=== PATIENT | male | born 1940 | race African-American/Black ===

== ENCOUNTER → 2016-12-16 10:11 | Outpatient (CLI) | payer MEDICARE, OTHER ==
[2016-03-04 09:34] VITALS: BMI 26.8
[~2016-12-16 10:11] MED LIST: ACETAMINOPHEN500 M1 PO; AMBIEN10 MG PO; ASPIRIN81 MG PO; CIALIS10 MG PO; COLACE100 MG PO; CYCLOBENZAPRINE10 MG PO; DYAZIDE 37.5/251 CAP PO; FLOMAX0.4 MG PO; GLUCOPHAGE850 MG PO; PERCOCET 10/3251 TA1 PO; PLAVIX75 MG PO; PRILOSEC20 MG PO; ZOCOR20 MG PO
[2016-12-16 11:18] LABS: ALBUMIN 3.8 g/dL (3.4-5.0); ANION GAP 14.1 mmol/L (8-16); BILIRUBIN - TOTAL 0.2 mg/dL (0.2-1.3); CALCIUM 9.3 mg/dL (8.5-10.1); CARBON DIOXIDE 27.9 mmol/L (21.0-32.0); CREATININE - SERUM 1.5 mg/dL (0.6-1.3); PROTEIN - SERUM 7.1 g/dL (6.4-8.2); URIC ACID 7.1 mg/dL (2.6-7.2)
[2016-12-16 11:25] LABS: HEMATOCRIT 43.3 % (42.0-54.0); HEMOGLOBIN 13.6 g/dL (13.5-17.5); MCH 25.7 pg (26.0-34.0); MCHC 31.4 g/dL (31.0-37.0); MCV 81.7 fL (80.0-100.0); MEAN PLATELET VOLUME 10.6 fL (7.4-10.4); RBC 5.3 10x6/uL (4.20-6.10); RDW 13.8 % (11.5-14.5); WBC 5.4 10x3/uL (4.8-10.8)
== END | disposition home or self-care (01) ==
LOC: D.LAB 10:11
PROVIDERS: Internal Medicine Cardiovascular Disease
DX: D64.9 Anemia, unspecified (principal); M10.9 Gout, unspecified; N28.9 Disorder of kidney and ureter, unspecified

== ENCOUNTER → 2018-05-23 09:01 | Outpatient (CLI) | payer MEDICARE, OTHER ==
[2016-03-04 09:34] VITALS: BMI 26.8
== END | disposition home or self-care (01) ==
LOC: D.US 09:01
DX: M79.605 Pain in left leg (principal); I73.9 Peripheral vascular disease, unspecified

== ENCOUNTER → 2018-08-04 09:47 | Outpatient (CLI) | payer MEDICARE, OTHER ==
[2016-03-04 09:34] VITALS: BMI 26.8
[~2018-08-04 09:47] MED LIST changes: +ACETAMINOPHEN PO; +EZFE 200200 MG PO; +GLIPIZIDE10 MG PO; +MAXZIDE 75/501 TAB; +NITROSTAT PO; +PROTONIX FOR OR40 MG PT; +TESSALON PERLE100 MG PO
== END | disposition home or self-care (01) ==
LOC: D.CT 09:47
DX: I73.9 Peripheral vascular disease, unspecified (principal); M79.605 Pain in left leg; M79.604 Pain in right leg

== ENCOUNTER 2018-09-01 05:05 | Day surgery (SDC) | payer MEDICARE, OTHER ==
[2018-08-31 11:35] LABS: HEMATOCRIT 40.4 % (42.0-54.0); HEMOGLOBIN 12.8 g/dL (13.5-17.5); MCH 25.5 pg (26.0-34.0); MCHC 31.7 g/dL (31.0-37.0); MCV 80.5 fL (80.0-100.0); RBC 5.02 10x6/uL (4.20-6.10); RDW 14.2 % (11.5-14.5); WBC 5.7 10x3/uL (4.8-10.8)
[2018-08-31 11:41] LABS: APTT 30.1 SECONDS (22.8-39.4); INR 0.87 (0.85-1.17); PROTIME 11.4 SECONDS (11.6-15.0)
[2018-08-31 11:45] LABS: APPEARANCE CLEAR (CLEAR); BILIRUBIN NEGATIVE (NEGATIVE); COLOR YELLOW (YELLOW); GLUCOSE NEGATIVE (NEGATIVE); KETONE NEGATIVE (NEGATIVE); NITRITE NEGATIVE (NEGATIVE); PROTEIN NEGATIVE (NEGATIVE); UROBILINOGEN NORMAL (NORMAL)
[2018-08-31 11:47] LABS: ALBUMIN 3.7 g/dL (3.4-5.0); ANION GAP 16.1 mmol/L (8-16); BILIRUBIN - TOTAL 0.17 mg/dL (0.2-1.3); CALCIUM 8.9 mg/dL (8.5-10.1); CARBON DIOXIDE 27.1 mmol/L (21.0-32.0); CREATININE - SERUM 1.3 mg/dL (0.6-1.3); POTASSIUM - SERUM 4.2 mmol/L (3.5-5.1); PROTEIN - SERUM 7.5 g/dL (6.4-8.2)
[~2018-09-01] VITALS: Ht 157.5 cm; Wt 90.9 kg
[2018-09-01] VITALS (22 sets, daily range): BP systolic 102–178; BP diastolic 51–89; Ht 157.5 cm; Wt 90.9 kg
--- NOTE | ~2018-09-01 | HP ---
PATIENT: LAILA DELVALLE MEDICAL RECORD: [id number] ACCOUNT: [id number] LOCATION:D.OPS : 41 ADMISSION DATE: 09/01/18 PCP: MATT ROMERO MD HISTORY AND PHYSICAL EXAMINATION LAILA Hopson (78yo, M) ID# [id number]. Date/Time08/24/2018 01:99RXHCP1941Service Dept.NPP_[facility] ClinicProviderMATT ROMERO MDInsuranceMed Primary: MEDICARE-AR (MEDICARE) Insurance # : [id number] Employer Name : RETIRED Med Secondary: WEB-TPA (MEDICARE SUPPLEMENT) Insurance # : [id number] Employer Name : RETIRED Prescription: CMX - Member is eligible. Chief Complaint Followup: Claudication s/p L art w int 08/12/15 s/p R art w int 03/03/16 2 month with CTA abd/aorta w runoff Patient's Care Team Referring Provider: LICO ZULETA MD: [address] [place] [id number], , Patient's Pharmacies [facility] (ERX): [address] [address], , [facility] (PRIMARY) (MAIL-ORDER, ERX): [address] [facility] [id number], , Vitals BP:132/76 sitting R arm 08/24/2018 01:06 pmHR:82/reg 08/24/2018 01:06 pmHt:5 ft 2 in 08/24/2018 01:02 pmWt:144 lbs 08/24/2018 01:04 pmBMI:26.3 08/24/2018 01:04 pmAllergies Reviewed Allergies PENICILLINSMedications Reviewed Medications acetylcysteine 600 mg capsule Take 1 capsule(s) by oral route as directed.02/27/16 Noel Mcleanurinol 100 mg tablet Take 1 tablet(s) every day by oral route.12/27/16 filledCaremarkbenzonatate 100 mg /26/17 filledCaremarkCialis 20 mg /25/18 filledCaremarkciprofloxacin 500 mg /27/17 filledCaremarkclindamycin HCl 300 mg vorzpqj96/19/17 filledCaremarkclopidogrel 75 mg tablet Take 1 tablet(s) every day by oral route.07/17/18 filledCaremarkcyclobenzaprine 10 mg ibvixl84/25/18 filledCaremarkEnteric Coated Aspirin 81 mg tablet,delayed release Take 1 tablet(s) every day by oral route.02/26/16 [facility] Wilsonfamotidine 40 mg inlsob84/01/17 filledCaremarkglipiZIDE 10 mg himnua99/27/18 filledCaremarkglipiZIDE 5 mg opgrzv88/06/18 filledCaremarkHYDROcodone 10 mg-acetaminophen 325 mg auxncr24/17/17 filledCaremarkmetFORMIN 850 mg /17/18 filledCaremarkNitrostat 0.4 mg sublingual dbvjry72/01/16 filledCaremarkOneTouch Ultra Blue Test Strip06/26/18 filledCaremarkoxyCODONE-acetam inophen 10 mg-325 mg /25/16 filledCaremarkpantoprazole 40 mg tablet,delayed bdlokcf77/20/18 filledCaremarkpolyethylene glycol 3350 17 gram/dose oral oowtcg81/17/17 filledCaremarkpredniSONE 10 mg tablets in a dose pack Take 1 package(s) by oral route as directed.12/27/16 filledCaremarksimvastatin 20 mg foulco00/27/18 filledCaremarkStool Znynkjku73/21/16 [facility] HISTORY AND PHYSICAL [id number] LAILA DELVALLE Wilsonsucralfate 1 gram /16/17 filledCaremarktamsulosin 0.4 mg szdrvto57/26/17 filledCaremarktriamterene 37.5 mg-hydrochlorothiazide 25 mg fkxiaw39/07/18 filledCaremarkzolpidem 10 mg qeemnk46/27/16 filledCaremarkProblems Reviewed Problems Gout - Onset: 01/05/2017 Intermittent palpitations Limb pain at rest due to atherosclerosis of [place] artery Claudication, Bilateral Pain at rest due to peripheral vascular disease Atherosclerosis of arteries of the extremities Intermittent claudication, Bilateral Family History Reviewed Family History Mother- Heart disease - deceasedFather- Malignant neoplastic diseaseSocial History Reviewed Social History Cardiology Family history of heart disease?: Y Smoking Status: Former smoker High Cholesterol: Y High blood pressure: Y Diabetes: Y Surgical History Reviewed Surgical History Other - left hip replacment Other - 11/2015 - colon biopsy Vascular Surgery - 08/12/2015 - arteriogram w intervention, DB Carotid Endarterectomy - 2011 - right Other - 2004 - cholecystectomy Past Medical History Reviewed Past Medical History Bladder Problems: Y Blurred Vision: Y Diabetes: Y - oral meds Dizzy Spells: Y Eye Problems: Y GERD: Y High Blood Pressure: Y Hyperlipidemia: Y Hypertension: Y Pain in legs when walking: Y Peripheral Vascular Disease (PVD): Y Documents for Discussion Discussed the following documents: UNKNOWN - 08/04/18 Notes - In-stent restenosis right lower e xtremity Severe left superficial femoral artery stenosis Screening None recorded. HPI Atherosclerosis lower extremities with claudication HISTORY AND PHYSICAL [id number] LAILA DELVALLE ROS Patient reports exercise intolerance (recurrent claudication of the lower extremities bilaterally) but reports no fever, no night sweats, no significant weight gain, and no significant weight loss; Beginning to develop rest pain left lower extremity. He reports palpitations but reports no chest pain, no arm pain on exertion, no shortness of breath when walking, no shortness of breath when lying down, and no known heart murmur. He reports muscle aches, muscle weakness, and arthralgias/joint pain but reports no back pain and no swelling in the extremities; symptoms resolved with allopurinol. He reports no dry eyes, no ir ritation, and no vision change. He reports no difficulty hearing and no ear pain. He reports no frequent nosebleeds and no nose/sinus problems. He reports no sore throat, no bleeding gums, no snoring, no dry mouth, no mouth ulcers, no oral abnormalities, a nd no teeth problems. He reports no cough, no wheezing, no shortness of breath, and no coughing up blood. He reports no abdominal pain, no vomiting, normal appetite, no diarrhea, not vomiting blood, no nausea, and no constipation. He reports no incontinen c e, no difficulty urinating, no hematuria, and no increased frequency. He reports no abnormal mole, no jaundice, and no rashes. He reports no loss of consciousness, no weakness, no numbness, no seizures, no dizziness, and no headaches. He reports no depres vickie, no sleep disturbances, feeling safe in relationship, and no alcohol abuse. He reports no fatigue. He reports no swollen glands and no bruising. He reports no runny nose, no sinus pressure, no itching, no hives, and no frequent sneezing. ROS as noted in the HPI Physical Exam Patient is a 78-year-old male. Constitutional: General Appearance well nourished and developed and healthy-appearing. Level of Distress NAD. Ambulation ambulation with cane. Cardiovascular: Apical Impulse not displaced or no thrill. Heart Auscultation normal s1 and s2; no murmurs, rubs, or gallops; and RRR. Arterial Pulses no abdominal aorta bruits, femoral bruits, or popliteal bruits; popliteal not palpable (bilaterally) and dorsalis pedis not palpable(bilaterally); and 2+ bilateral, carotid 2+ bilateral, and femoral 2+ bilateral. Edema no edema or varicosities. Lungs: Repiratory Effort no dyspnea. Percussion no hyperresonance or dullness or flatness. Auscultation no wheezing, rhonchi, or rales / crackles and breathing sounds normal, good air movement, and CTA except as noted. Abdomen: Bowl Sounds normal. Inspection and Palpation no tenderness, guarding, masses, or rebound tenderness and soft and non-distended. Liver non-tender and no hepatomegaly. Spleen non-tender and no splenomegaly. Hernia none palpable. Ears, Nose, Throat: Hearing grossly normal hearing. Nose no external nose lesion. Lips, Teeth, and Gums no mouth or lip ulcers. Oropharynx: moist mucous membranes. Musculoskeletal System: Gait And Stance normal gait and stance. Digits and Nails normal nails and no cyanosis. Joints, Bones, and Muscles normal strength and movement of all extremities. Neurologic: Cranial Nerves grossly intact. Reflexes DTRs 2+ bilaterally throughout. Sensation grossly intact. Lymph Nodes: Lymph Nodes no cervical LAD, supraclavicular LAD, axillary LAD, or inguinal LAD. HISTORY AND PHYSICAL [id number] LAILA DELVALLE Eyes: Lids and Conjunctivae no discharge or pallor and non-injected. Pupils PERRLA. Cornea grossly intact. EOM EOMI. Lens clear. Sclerae non-icteric. Neck: Neck no masses, enlarged lymph nodes, or carotid bruits and supple and trachea midline. Thyroid no enlargement or nodules and non-tender. Skin: Inspection and Palpation no rash, lesions, ulcers, jaundice, or abnormal nevi. Assessment / Plan Atherosclerosis with rest pain 1. Claudication I73.9: Peripheral vascular disease, unspecified I70.218: Atherosclerosis of [place] arteries of extremities with intermittent claudication, other extremity 2. Limb pain at rest due to atherosclerosis of [place] artery I70.221: Atherosclerosis of [place] arteries of extremities with rest pain, right leg 3. Pain at rest due to peripheral vascular disease I73.9: Peripheral vascular disease, unspecified 4. Atherosclerosis of arteries of the extremities I70.209: Unspecified atherosclerosis of [place] arteries of extremities, unspecified extremity 5. Intermittent claudication I73.9: Peripheral vascular disease, unspecified Discussion Notes CT angiogram of the lower extremities and demonstrates severe sten osis left superficial femoral artery He also has in-stent stenosis on the right Plan Keli back atherectomy left lower extremity I have discussed the patient's disease process with him in detail as well as the alternative methods of treatment. We discuss ed endovascular repair of his left superficial femoral artery as well as open procedure we discussed the expected benefits and risk which include bleeding, infection, stroke, and , and the imponderables. He understands all of the above and wishes to proceed with planned intervention MATT ROMERO MD at 1547 CC: [id number] DICTATION DATE: 08/24/18 1350 [employer] PL[employer] MANAGER: ELSY 08/28/18 0946 [facility] [address] [id number]
--- NOTE | ~2018-09-01 | OP ---
PATIENT NAME: LAILA DELVALLE MEDICAL RECORD: [id number] :42 LOCATION:DJamilaOPS ADMISSION DATE: SURGEON: MATT GALVAN MD DATE OF OPERATION: 09/01/2018 SURGEON: Matt Galvan MD ANESTHESIA: General, Dr. Vizcaino. OPERATION PERFORMED: 1. Percutaneous access and closure of right common femoral artery. 2. Retrograde right external iliac arteriogram. 3. Selective left common femoral arteriogram. 4. Selective left superficial femoral arteriogram. 5. Selective left popliteal arteriogram. 6. Selective posterior tibioperoneal artery trunk arteriogram. 7. Diamondback atherectomy of superficial femoral artery proximally. 8. Diamondback atherectomy of the mid adductor canal superficial femoral artery. 9. Diamondback atherectomy of the distal popliteal artery. 10. Angioplasty of the popliteal artery with a 5 x 200 balloon. 11. Angioplasty of the superficial femoral artery with a 5 x 150 balloon. 12. Stenting of the left superficial femoral artery at the adductor canal with a 6 x 150 post-dilated with a 5 mm balloon. 13. Angiogram of left common femoral artery with runoff to the knee. 14. Selective popliteal arteriogram with runoff to the foot. PREOPERATIVE DIAGNOSIS: Severe claudication of lower extremities bilaterally, left greater than the right. POSTOPERATIVE DIAGNOSIS: Severe stenosis of the left superficial femoral artery and popliteal artery. INDICATION FOR OPERATION: Life altering claudication. FINDINGS AT OPERATION: The fluoro time was 15 minutes 27 seconds. Contrast was 133 mL. ARTERIOGRAMS: 1. Retrograde right external iliac arteriogram demonstrates diffuse disease, but no flow-limiting stenoses and delineation of the bifurcation. 2. Selective left common femoral arteriogram demonstrates an open distal iliac, common femoral with good flow into the profunda. There is 60% stenosis of the left superficial femoral artery at its proximal one-third. 3. Selective left superficial femoral arteriogram demonstrates high-grade stenosis at the adductor canal over 120 mm. 4. Selective left popliteal arteriogram demonstrates greater than 70% stenosis of the popliteal artery at the femoral condyle as well as distally at the tibial plateau. 5. Selective posterior tibioperoneal artery trunk arteriogram demonstrates good 3-vessel runoff to the foot. 6. Diamondback atherectomy of superficial femoral artery demonstrates improved flow suboptimal. 7. Diamondback atherectomy of the mid superficial femoral artery demonstrates much improved flow, but suboptimal. Diamondback atherectomy of the popliteal OPERATIVE REPORT [id number] LAILA DELVALLE artery demonstrates much improved stenotic area, but suboptimal. 8. Angioplasty of the popliteal artery demonstrates good result with no residual stenosis. 9. Angioplasty of the superficial femoral artery in its mid portion demonstrates a dissection with recurrent stenosis. 10. Arteriogram of the proximal superficial femoral artery demonstrates much improved flow with the area with minimal residual stenosis. 11. Stenting of the left superficial femoral artery at the adductor canal with a 6 x 150 stent demonstrates no residual stenosis through the superficial femoral artery and popliteal artery. 12. Arteriogram of left common femoral artery with runoff demonstrates excellent flow, no residual stenosis to the popliteal artery. 13. Popliteal arteriogram demonstrates good 3-vessel runoff to the foot with a good pedal arch. DESCRIPTION OF PROCEDURE: After informed consent, adequate preoperative medication evaluation, the patient was brought to the operating room, placed on the table in supine position. After induction of general endotracheal anesthesia and application of appropriate monitoring devices, the abdomen, and both legs were prepped and draped in sterile field, utilizing Betadine scrub, alcohol, and Betadine solution. Betadine-impregnated drape was also used. Utilizing ultrasound guidance, the right common femoral artery was accessed with a mini stick technique. The 4-sheath was exchanged for a 5-sheath. The patient was given a calculated dose of heparin. A right retrograde external iliac arteriogram was performed and demonstrated no significant stenosis delineated the bifurcation. Utilizing a rim catheter and Glidewire, the left superficial femoral artery was accessed. An exchange was made for an Amplatz wire and a 6-Dominican long sheath placed to the common femoral artery and arteriogram demonstrated the above anatomy. The superficial femoral artery was cannulated with a Quick-Cross catheter and an arteriogram performed from the proximal 1/3 to the knee demonstrated severe stenosis at the adductor canal over 120 mm. The wire and catheter were then manipulated into the popliteal artery. Popliteal arteriogram demonstrated stenosis in 2 places of the popliteal artery. The wire and catheter were then manipulated in the posterior tibioperoneal artery trunk and arteriogram demonstrated reflux into the anterior tibial artery and peroneal and posterior tibial arteries. A ViperWire was placed in the peroneal artery on the left. Utilizing a Diamondback atherectomy technique, the proximal superficial femoral artery, mid superficial femoral artery, popliteal artery in 2 different places underwent Diamondback atherectomy. The device was removed and arteriogram revealed the residual stenotic areas. Utilizing a 5 x 200 balloon, the popliteal artery was dilated. This was then advanced to the adductor canal and superficial femoral artery distally then advanced to the proximal superficial femoral artery. Arteriogram demonstrated residual stenosis and dissection in the mid superficial femoral artery and residual stenosis in the popliteal artery. The popliteal artery was redilated with a 5 mm balloon with a good result. Exchange was then made for a 6 x 150 mm stent, which was deployed from the proximal popliteal artery through the superficial femoral artery for 150 mm. Post-inflation with a 5 mm balloon demonstrated excellent result with no residual stenosis. An arteriogram was then performed from the common femoral artery to the knee with no residual stenosis. A Quick-Cross catheter was placed in the popliteal artery and popliteal arteriogram demonstrated no residual stenosis, good 3-vessel runoff to the foot with a good pedal arch. The wires, catheters, and sheaths were removed and the patient was given a calculated dose of protamine to reverse the heparin. Then, a 6-Dominican Angio-Seal was used to close the puncture site in the right common femoral OPERATIVE REPORT [id number] LAILA DELVALLE. Sterile dressings were applied. The patient tolerated the procedure well and was transferred to the CV ICU in satisfactory condition. TRANSINT:[id number] Voice Confirmation ID: [id number] DOCUMENT ID: [id number] MATT GALVAN MD at 0946 CC: [id number] DICTATION DATE: 09/01/18 1058 [employer] PL[employer] HELPER: 09/01/18 1116 [facility] 09/02/[address] [id number]
[2018-09-01 05:39] LABS: APTT 32.1 SECONDS (22.8-39.4); INR 0.93 (0.85-1.17); PROTIME 12.1 SECONDS (11.6-15.0)
[2018-09-01 13:28] LABS: PLT FUNCT.(P2Y12) PLAVIX 282 PRU (194-418)
[2018-09-02] VITALS (9 sets, daily range): BP systolic 117–141; BP diastolic 57–81
[2018-09-02 06:10] LABS: HEMATOCRIT 33.7 % (42.0-54.0); HEMOGLOBIN 10.5 g/dL (13.5-17.5); MCHC 31.2 g/dL (31.0-37.0); MCV 80.2 fL (80.0-100.0); MEAN PLATELET VOLUME 9.7 fL (7.4-10.4); RBC 4.2 10x6/uL (4.20-6.10); RDW 14.5 % (11.5-14.5)
[2018-09-02 06:15] LABS: WBC 9.9 10x3/uL (4.8-10.8)
[2018-09-02 06:41] LABS: ALBUMIN 3.2 g/dL (3.4-5.0); ANION GAP 14.2 mmol/L (8-16); BILIRUBIN - TOTAL 0.31 mg/dL (0.2-1.3); CALCIUM 7.9 mg/dL (8.5-10.1); CARBON DIOXIDE 23.6 mmol/L (21.0-32.0); CREATININE - SERUM 1.2 mg/dL (0.6-1.3); POTASSIUM - SERUM 3.8 mmol/L (3.5-5.1); PROTEIN - SERUM 6.3 g/dL (6.4-8.2)
== END 2018-09-02 11:00 | disposition home or self-care (01) ==
LOC: D.CVICU 05:05 → D.OPS 05:05 → D.PAN 07:30 → D.CVICU 10:43 → D.OPS 09-02 11:00
PROVIDERS: Anesthesiology; Internal Medicine Cardiovascular Disease
DX: I70.213 Atherosclerosis of native arteries of extremities with intermittent claudication, bilateral legs (principal)

== ENCOUNTER → 2019-08-16 08:13 | Outpatient (CLI) | payer MEDICARE, OTHER ==
[2018-09-01 12:45] VITALS: BMI 36.6
== END | disposition home or self-care (01) ==
LOC: D.MRI 08-10 10:30
PROVIDERS: ATTEND Orthopaedic Surgery
DX: M79.604 Pain in right leg (principal)

== ENCOUNTER → 2020-08-25 10:53 | Outpatient (CLI) | payer MEDICARE, OTHER ==
[2018-09-01 12:45] VITALS: BMI 36.6
== END | disposition home or self-care (01) ==
LOC: D.US 10:53
PROVIDERS: ATTEND Internal Medicine Cardiovascular Disease
DX: I65.23 Occlusion and stenosis of bilateral carotid arteries (principal)